=== PATIENT | male | born 1995 | race African-American/Black ===

== ENCOUNTER 2019-03-24 01:59 | Emergency (ER) | payer OTHER ==
[~2019-03-24] VITALS: Ht 182.9 cm; Wt 87.7 kg
[2019-03-24] MEDS ORDERED: TETANUS/DIPHTHERIA TOX ADSORB ADULT 0.5ML SYR/VIAL (90714) IM ONE (02:15)
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
[2019-03-24] MEDS ORDERED: LIDOCAINE W/EPINEPHRINE 1% 20ML VIAL SC ONE (03:15)
[2019-03-24] MEDS ORDERED: AUGM500T34 PO (03:34)
[2019-03-24 03:47] VITALS: BP 128/61
== END 2019-03-24 04:04 | disposition home or self-care (01) ==
LOC: M ED 01:59
DX: S02.40DA Maxillary fracture, left side, initial encounter for closed fracture (principal); Y04.8XXA Assault by other bodily force, initial encounter; Y92.149 Unspecified place in prison as the place of occurrence of the external cause; Z23 Encounter for immunization